=== PATIENT | female | born 1935 | race Caucasian/White ===

== ENCOUNTER 2023-06-26 21:51 | Inpatient (IN) | payer OTHER ==
[2023-06-26 22:30] LABS: Absolute Lymphocytes (CBC) 2.1 K/uL (0.7-4.9); Hematocrit 41.2 % (36.0-45.0); MCV 90.2 fL (80-100); MPV 9.1 fL (7.6-11.3); Platelets 269 thou/uL (152-406); RBC Red Blood Cell Count 4.57 M/uL (3.86-4.86)
[2023-06-26] MEDS ORDERED: NA CHLORIDE 0.9% 500 ML ONE (22:48)
[2023-06-26] MEDS ORDERED: cloNIDine HCL 0.1 MG TAB ONE (22:48)
[2023-06-26 22:56] LABS: Potassium 3.9 mEq/L (3.5-5.1)
[2023-06-26 23:11] LABS: Specific Gravity 1.022 (1.005-1.030); Urine Bacteria None Seen /HPF (<20); Urine Bilirubin NEGATIVE (Negative); Urine Blood Negative (Negative); Urine Clarity Clear (Clear); Urine Color Light-Yellow (Yellow); Urine Glucose NEGATIVE (Negative); Urine Mucus Slight /HPF (None Seen); Urine Protein NEGATIVE (Negative); Urine RBC <5 /HPF (None Seen); Urine Urobilinogen Normal (Normal); Urine pH 6.5 (5.0-7.0)
[2023-06-26 23:26] LABS: Troponin High Sensitivity 101.2 pg/mL (<58.9)
[2023-06-27] MEDS ORDERED: ASPIRIN 81 MG CHEWABLE TABLET ONE (01:07)
[2023-06-27] MEDS ORDERED: ENOXAPARIN 60 MG/0.6 ML SQ ONE (01:08)
--- NOTE | 2023-06-27 01:16 | ER ---
Nurse's Notes [facility] Name: Edita Brown Age: 87 yrs Sex: Female : 1935 Arrival Date: 06/26/2023 Time: 21:51 Bed 18 Private MD: Diagnosis: Hypertensive heart disease without heart failure Presentation: 06/26 22:09 Chief complaint: Patient states: been having vertigo for three days, with nausea, tm6 vomiting, and dizziness. Took BP at home today, SBP in the 200s. Took 0.25mg alprazolam prior to arrival. Coronavirus screen: Vaccine status: Patient reports receiving the 2nd dose of the covid vaccine. Ebola Screen: Patient negative for fever greater than or equal to 101.5 degrees Fahrenheit, and additional compatible Ebola Virus Disease symptoms Patient denies exposure to infectious person. Patient denies travel to an Ebola-affected area in the 21 days before illness onset. No symptoms or risks identified at this time. Initial Sepsis Screen: Does the patient meet any 2 criteria? No. Patient's initial sepsis screen is negative. Does the patient have a suspected source of infection? No. Patient's initial sepsis screen is negative. Risk Assessment: Do you want to hurt yourself or someone else? Patient reports no desire to harm self or others. Onset of symptoms was June 26, 2023. 22:09 Method Of Arrival: Ambulatory tm6 22:09 Acuity: ALICE 3 tm6 Triage Assessment: 22:14 General: Appears in no apparent distress. Behavior is calm, cooperative. Pain: Denies tm6 pain. EENT: No signs and/or symptoms were reported regarding the EENT system. Neuro: Level of Consciousness is awake, alert, obeys commands, Oriented to person, place, time, situation, Reports dizziness, since 06/24/23. Cardiovascular: Reports nausea, vomiting, high blood pressure since 06/24/23 Capillary refill < 3 seconds Patient's skin is warm and dry. Rhythm is sinus rhythm. Respiratory: Airway is patent Respiratory effort is even, unlabored, Respiratory pattern is regular, symmetrical. GI: Abdomen is flat, non-distended. : No signs and/or symptoms were reported regarding the genitourinary system. Derm: No signs and/or symptoms reported regarding the dermatologic system. Musculoskeletal: No signs and/or symptoms reported regarding the musculoskeletal system. Historical: - Allergies: 22:12 No Known Allergies; tm6 - Home Meds: 22:12 alprazolam 0.25 mg Oral tablet 1 tab [Active]; nebivolol 10 mg oral tablet 1 tab daily tm6 [Active]; losartan 50 mg oral tablet 1 tab daily [Active]; - PMHx: 22:14 Hypertensive disorder; Anxiety; tm6 - PSHx: 22:14 Appendectomy; tm6 - Immunization history:: Adult Immunizations up to date, Client reports receiving the 2nd dose of the Covid vaccine, Flu vaccine is up to date. - Social history:: Smoking status: Patient denies any tobacco usage or history of. Screenin:16 [facility] ED Fall Risk Assessment (Adult) History of falling in the last 3 months, tm6 including since admission No falls in past 3 months (0 pts) Confusion or Disorientation No (0 pts) Intoxicated or Sedated No (0 pts) Impaired Gait No (0 pts) Mobility Assist Device Used No (0 pt) Altered Elimination No (0 pt) Score/Fall Risk Level 0 - 2 = Low Risk. [facility] ED Fall Risk Assessment (Adult) Score/Fall Risk Level 0 - 2 = Low Risk Oriented to surroundings, Maintained a safe environment. Abuse screen: Denies threats or abuse. Denies injuries from another. Nutritional screening: No deficits noted. Tuberculosis screening: No symptoms or risk factors identified. Assessment: 22:16 Reassessment: see triage assessment. tm6 22:39 Reassessment: Patient appears in no apparent distress at this time. No changes from tm6 previously documented assessment. Patient and/or family updated on plan of care and expected duration. Pain level reassessed. Patient is alert, oriented x 3, equal unlabored respirations, skin warm/dry/pink. 06/27 00:51 Reassessment: No changes from previously documented assessment. Patient and/or family tm6 updated on plan of care and expected duration. Pain level reassessed. Patient is alert, oriented x 3, equal unlabored respirations, skin warm/dry/pink. 01:38 Reassessment: Patient appears in no apparent distress at this time. No changes from tm6 previously documented assessment. Patient and/or family updated on plan of care and expected duration. Pain level reassessed. Patient is alert, oriented x 3, equal unlabored respirations, skin warm/dry/pink. 02:30 Reassessment: Patient and/or family updated on plan of care and expected duration. Pain tm6 level reassessed. Patient is alert, oriented x 3, equal unlabored respirations, skin warm/dry/pink. Vital Signs: 06/26 22:09 BP 222 / 119; Pulse 84; Resp 12; Temp 98.7(TE); Pulse Ox 98% on R/A; Weight 59.87 kg; tm6 Height 5 ft. 1 in. ; Pain 0/10; 22:25 BP 223 / 109; Pulse 72; Resp 22; Pulse Ox 100% on R/A; Pain 0/10; tm6 22:39 BP 236 / 123; Pulse 81; Resp 15; Pulse Ox 100% on R/A; Pain 0/10; tm6 23:00 BP 203 / 101; Pulse 75; Resp 18; Pulse Ox 100% on R/A; mb9 23:30 BP 172 / 90; Pulse 69; Resp 16; Pulse Ox 100% on R/A; mb9 23:53 BP 161 / 81; Pulse 68; Resp 16; Pulse Ox 100% on R/A; Pain 0/10; tm6 06/27 00:20 BP 146 / 91; Pulse 66; Resp 16; Pulse Ox 97% on R/A; mb9 00:25 BP 124 / 76; Pulse 67; Pulse Ox 99% on R/A; tm6 00:51 BP 137 / 74; Pulse 67; Pulse Ox 95% on R/A; tm6 00:53 BP 109 / 84; Pulse 69; Pulse Ox 100% on R/A; tm6 01:38 BP 131 / 73; Pulse 66; Pulse Ox 98% on R/A; tm6 02:29 BP 100 / 70; Pulse 59; Resp 13; Pulse Ox 97% on R/A; Pain 0/10; tm6 06/26 22:09 Body Mass Index 24.94 (59.87 kg, 154.94 cm) tm6 06/26 22:09 Pain Scale: Adult tm6 22:25 Pain Scale: Adult tm6 22:39 Pain Scale: Adult tm6 23:53 Pain Scale: Adult tm6 02:29 Pain Scale: Adult tm6 ED Course: 06/26 21:55 Patient arrived in ED. ra3 21:55 Prakash Patel PA is PHCP. cp 21:55 Norris Gilliam MD is Attending Physician. cp 22:09 Quentin Carroll, ARABELLA is Primary Nurse. tm6 22:12 Triage completed. tm6 22:14 Arm band placed on right wrist. tm6 22:15 Inserted saline lock: 20 gauge in right antecubital area, using aseptic technique. mb9 Blood collected. 22:16 Patient has correct armband on for positive identification. Placed in gown. Bed in low tm6 position. Call light in reach. Side rails up X2. Provided Education on: plan of care. Client placed on continuous cardiac and pulse oximetry monitoring. NIBP monitoring applied. fourdrinier wire weaver on. Pulse ox on. NIBP on. Door closed. Noise minimized. Warm blanket given. 23:09 Urinalysis W/Microscopic Sent. tm6 23:[address] via wheelchair. mb9 23:26 Notified Nurse Practitioner and/or Physician Costume Specialist of a critical lab result(s), mb9 troponin 101.2. 23:30 CT Head Brain wo Cont In Process Unspecified. EDUT 06/27 01:15 Paul Stanley MD is Hospitalizing Provider. cp 03:38 No provider procedures requiring assistance completed. Patient admitted, IV remains in tm6 place. Administered Medications: 06/26 22:56 Drug: cloNIDine PO 0.2 mg PO once Route: PO; tm6 22:56 Drug: NS 0.9% IV 500 ml IV at 100 ml/hr continuous Route: IV; Rate: 100 ml/hr; Site: tm6 right antecubital; 06/27 01:12 Drug: Aspirin PO Chewable Tablet 324 mg PO once; 81 mg tablets x 4 Route: PO; tm6 01:12 Drug: Enoxaparin Sub-Q 1 mg/kg Sub-Q once Route: Sub-Q; Site: right lower abdomen; tm6 Medication: 06/26 22:16 VIS not applicable for this client. tm6 Outcome: 06/27 01:16 Decision to Hospitalize by Provider. cp 03:39 Admitted to Med/surg accompanied by nurse, room 401, with chart, Report called to [facility] [place] BELL 03:39 Condition: stable 03:39 Instructed on the need for admit, 03:39 Patient left the ED. tm6 Signatures: Dispatcher [employer] EDUT Prakash Patel PA PA cp Breneman, Cassy Venegas, RN RN mb9 Quentin Carroll RN RN 6 Patti Brice 3 Corrections: (The following items were deleted from the chart) 06/26 23:34 23:23 BP 191 / 95; Pulse 70bpm; Resp 16bpm; Pulse Ox 100% RA; mb9 mb9 23:38 23:30 BP 172 / 96; Pulse 69bpm; Resp 16bpm; Pulse Ox 100% RA; mb9 mb9
--- NOTE | 2023-06-27 01:16 | EDPHYS ---
Physician Documentation [facility] Name: Edita Brown Age: 87 yrs Sex: Female : 1935 Arrival Date: 06/26/2023 Time: 21:51 Bed 18 Private MD: ED Physician Norris Gilliam HPI: 06/26 22:20 This 87 yrs old Female presents to ER via Ambulatory with complaints of High Blood cp Pressure. 22:20 The patient has elevated blood pressure and discovered this at home, with a home cp device. Onset: The symptoms/episode began/occurred today. 22:20 Associated signs and symptoms: Pertinent positives: dizziness, Pertinent negatives: cp chest pain, visual changes, weakness, active vomiting. Severity of symptoms: in the emergency department the blood pressure is unchanged, despite home interventions. 22:20 Patient reports 3 days ago started having dizziness, nausea and vomiting that has been cp improved today. Check blood pressure and noticed it was elevated in the 200's. Historical: - Allergies: 22:12 No Known Allergies; tm6 - Home Meds: 22:12 alprazolam 0.25 mg Oral tablet 1 tab [Active]; nebivolol 10 mg oral tablet 1 tab daily tm6 [Active]; losartan 50 mg oral tablet 1 tab daily [Active]; - PMHx: 22:14 Hypertensive disorder; Anxiety; tm6 - PSHx: 22:14 Appendectomy; tm6 - Immunization history:: Adult Immunizations up to date, Client reports receiving the 2nd dose of the Covid vaccine, Flu vaccine is up to date. - Social history:: Smoking status: Patient denies any tobacco usage or history of. ROS: 22:25 Constitutional: Negative for body aches, chills, fever, poor PO intake, cp 22:25 Eyes: Negative for injury, pain, redness, and discharge, cp 22:25 Cardiovascular: Negative for chest pain, edema, palpitations, 22:25 Respiratory: Negative for cough, shortness of breath, wheezing, 22:25 Abdomen/GI: Negative for abdominal pain, diarrhea, constipation, active vomiting, 22:25 ENT: Negative for drainage from ear(s), ear pain, sore throat, difficulty swallowing, cp difficulty handling secretions, 22:25 Neck: Negative for pain with movement, pain at rest, stiffness, 22:25 Back: Negative for pain at rest, pain with movement, 22:25 Neuro: Positive for dizziness, Negative for altered mental status, headache, numbness, syncope, weakness, 22:25 All other systems are negative, Exam: 22: ECG was reviewed by the Attending Physician. cp 22:30 Constitutional: The patient appears in no acute distress, alert, awake, cp non-diaphoretic, non-toxic, well developed, well nourished, 22:30 Head/Face: Normocephalic, atraumatic. cp 22:30 Eyes: Periorbital structures: appear normal, Pupils: equal, round, and reactive to light and accomodation, Extraocular movements: intact throughout, Conjunctiva: normal, no exudate, no injection, Sclera: no appreciated abnormality, Lids and lashes: appear normal, bilaterally, 22:30 ENT: External ear(s): are unremarkable, Nose: is normal, Mouth: Lips: moist, Oral mucosa: pink and intact, moist, Posterior pharynx: is normal, airway is patent, no erythema, no exudate, 22:30 Neck: ROM/movement: is normal, is supple, without pain, no range of motions limitations, no nuchal rigidity, 22:30 Chest/axilla: Inspection: normal, Palpation: is normal, no crepitus, no tenderness, 22:30 Cardiovascular: Rate: normal, Rhythm: regular, Edema: is not appreciated, JVD: is not appreciated, 22:30 Respiratory: the patient does not display signs of respiratory distress, Respirations: normal, no use of accessory muscles, no retractions, labored breathing, is not present, Breath sounds: are clear throughout, no decreased breath sounds, no stridor, no wheezing, 22:30 Abdomen/GI: Inspection: abdomen appears normal, Bowel sounds: active, all quadrants, Palpation: abdomen is soft and non-tender, in all quadrants, 22:30 Back: pain, is absent, ROM is normal, 22:30 Skin: no rash present. 22:30 Neuro: Orientation: to person, place \T\ time. Mentation: is normal, Cerebellar function: is grossly normal, Motor: moves all fours, strength is normal, Sensation: is normal, Vital Signs: 22:09 BP 222 / 119; Pulse 84; Resp 12; Temp 98.7(TE); Pulse Ox 98% on R/A; Weight 59.87 kg; tm6 Height 5 ft. 1 in. ; Pain 0/10; 22:25 BP 223 / 109; Pulse 72; Resp 22; Pulse Ox 100% on R/A; Pain 0/10; tm6 22:39 BP 236 / 123; Pulse 81; Resp 15; Pulse Ox 100% on R/A; Pain 0/10; tm6 23:00 BP 203 / 101; Pulse 75; Resp 18; Pulse Ox 100% on R/A; mb9 23:30 BP 172 / 90; Pulse 69; Resp 16; Pulse Ox 100% on R/A; mb9 23:53 BP 161 / 81; Pulse 68; Resp 16; Pulse Ox 100% on R/A; Pain 0/10; tm6 06/27 00:20 BP 146 / 91; Pulse 66; Resp 16; Pulse Ox 97% on R/A; mb9 00:25 BP 124 / 76; Pulse 67; Pulse Ox 99% on R/A; tm6 00:51 BP 137 / 74; Pulse 67; Pulse Ox 95% on R/A; tm6 00:53 BP 109 / 84; Pulse 69; Pulse Ox 100% on R/A; tm6 01:38 BP 131 / 73; Pulse 66; Pulse Ox 98% on R/A; tm6 02:29 BP 100 / 70; Pulse 59; Resp 13; Pulse Ox 97% on R/A; Pain 0/10; tm6 06/26 22:09 Body Mass Index 24.94 (59.87 kg, 154.94 cm) 6 06/26 22:09 Pain Scale: Adult 6 22:25 Pain Scale: Adult tm6 22:39 Pain Scale: Adult tm6 23:53 Pain Scale: Adult tm6 02:29 Pain Scale: Adult tm6 MDM: 06/26 22:27 Patient medically screened. cp 06/27 01:15 Data reviewed: vital signs, nurses notes, lab test result(s), EKG, radiologic studies, cp CT scan, plain films. 01:15 Differential diagnosis: hypertensive crisis, Malignant HTN, CVA, intracerebral cp hemorrhage, acute DC. Consideration of Admission/Observation Patient was admitted/placed on observation. I considered the following discharge prescriptions or medication management in the emergency department Medications were administered in the Emergency Department. See MAR. Independent interpretation of the following test(s) in the Emergency Department EKG: See my EKG interpretation above. Counseling: I had a detailed discussion with the patient and/or guardian regarding the historical points, exam findings, and any diagnostic results supporting the discharge/admit diagnosis, lab results, radiology results, the need for further work-up and treatment in the hospital. 06/26 22:15 Order name: Basic Metabolic Panel; Complete Time: 23:26 mb9 06/26 23:34 Interpretation: Normal except: GLUC 129; BUN 22; CRE 1.27; GFR 41. cp 06/26 22:15 Order name: CBC with Diff; Complete Time: 23:26 mb9 06/26 22:15 Order name: Troponin HS; Complete Time: 23:26 mb9 06/26 23:34 Interpretation: Abnormal: Troponin HS 101.2. cp 06/26 22:46 Order name: Urinalysis W/Microscopic; Complete Time: 23:26 cp 06/26 23:35 Interpretation: Normal except: UESTR 25. cp 06/26 22:46 Order name: PT-INR; Complete Time: 23:26 cp 06/26 22:46 Order name: Ptt, Activated; Complete Time: 23:26 cp 06/27 02:34 Order name: Urinalysis w/ reflexes [facility] 06/27 02:34 Order name: CBC with Automated Diff [facility] 06/27 02:34 Order name: CBC with Automated Diff [facility] 06/27 02:34 Order name: Comprehensive Metabolic Panel [facility] 06/27 02:34 Order name: Comprehensive Metabolic Panel [facility] 06/27 02:34 Order name: Lipid Profile [facility] 06/27 02:34 Order name: Lipid Profile [facility] 06/27 02:35 Order name: Troponin High Sensitivity [facility] 06/27 02:35 Order name: Troponin High Sensitivity [facility] 06/27 02:35 Order name: Troponin High Sensitivity [facility] 06/26 22:46 Order name: CT Head Brain wo Cont cp 06/27 02:42 Order name: Echo with Doppler [facility] 06/26 22:15 Order name: EKG; Complete Time: 22:16 mb9 06/26 22:15 Order name: Cardiac monitoring; Complete Time: 22:15 mb9 06/26 22:15 Order name: EKG - Nurse/Tech; Complete Time: 22:25 mb9 06/26 22:15 Order name: IV Saline Lock; Complete Time: 22:15 mb9 06/26 22:15 Order name: Labs collected and sent; Complete Time: 22:15 mb9 06/26 22:15 Order name: O2 Per Protocol; Complete Time: 22:15 mb9 06/26 22:15 Order name: O2 Sat Monitoring; Complete Time: 22:15 mb9 EC/24 22:27 Rate is 76 beats/min. Rhythm is regular. NE interval is normal. QRS interval is normal. cp QT interval is normal. T waves are Inverted in lead aVR. Interpreted by me. Reviewed by me. Administered Medications: 22:56 Drug: cloNIDine PO 0.2 mg PO once Route: PO; tm6 22:56 Drug: NS 0.9% IV 500 ml IV at 100 ml/hr continuous Route: IV; Rate: 100 ml/hr; Site: tm6 right antecubital; 06/27 01:12 Drug: Aspirin PO Chewable Tablet 324 mg PO once; 81 mg tablets x 4 Route: PO; tm6 01:12 Drug: Enoxaparin Sub-Q 1 mg/kg Sub-Q once Route: Sub-Q; Site: right lower abdomen; tm6 Disposition: 04:03 Co-signature as Attending Physician, Norris Gilliam MD I reviewed the patient's care rt provided by the Advanced Practice Provider and agree with the diagnosis and treatment plan. Disposition Summary: 06/27/23 01:16 Hospitalization Ordered Notes: Hospitalization Status: Inpatient Admission cp Provider: Paul Stanley cp Location: Telemetry/MedSurg (Inpatient) cp Condition: Stable cp Problem: new cp Symptoms: have improved cp Bed/Room Type: Standard cp Room Assignment: 401(06/27/23 02:33) cg Diagnosis - Hypertensive heart disease without heart failure cp Forms: - Medication Reconciliation Form cp - SBAR form cp - Leadership Thank You Letter cp Signatures: Dispatcher [employer] EDMS Prakash Patel PA PA cp Tami Madden RN RN cg Cassy Manjarrez RN RN mb9 Norris iGlliam MD MD rt Quentin Carroll RN RN tm6 Corrections: (The following items were deleted from the chart) 02:33 01:16 cp cg 06/28 01:00 06/25 22:27 ECG was reviewed by the Attending Physician. cp cp 06/28 01:00 06/25 22:27 Rate is 76 beats/min. Rhythm is regular. NE interval is normal. QRS cp interval is normal. QT interval is normal. T waves are Inverted in lead aVR. Interpreted by me. Reviewed by me. cp
[2023-06-27] MEDS ORDERED: ACETAMINOPHEN 325 MG TABLET PO PRN (02:29)
[2023-06-27] MEDS ORDERED: ONDANSETRON 4 MG/2 ML VIAL IV PRN (02:29)
--- NOTE | 2023-06-27 02:36 | P.HP ---
Certification for Inpatient Patient admitted to: Inpatient With expected LOS: >2 Midnights Practitioner: I am a practitioner with admitting privileges, knowledge of patient current condition, hospital course, and medical plan of care. Services: Services provided to patient in accordance with Admission requirements found in Title 42 Section 412.3 of the Code of Federal Regulations Patient History Date of Service: 06/27/23 Reason for admission: Elevated BP , Dizziness History of Present Illness: 87 yo female with past medical history of hypertension was brought to ER with el evated blood pressure and dizziness which has been going on for the last 2 days. Patient complains of nausea and vomiting and dizziness 2 days ago. Denies any chest pain. No shortness of breath. No fever or chills. Patient is a poor historian hence most of the history is obtained from the family at the bedside and also talking to the ER physician. Patient was assessed in the ER and blood pressure was 222 / 112 and was admitted for further management. Patient also noted to have elevated troponin with no significant ST-T changes and without chest pain Allergies No Known Allergies Allergy (Unverified 06/27/23 01:59) Home medications list reviewed: Yes Home Medications: ALPRAZolam [Xanax*] 1 tab PO PRN 06/27/23 Losartan Potassium 1 tab PO DAILY 06/27/23 Nebivolol HCl 1 tab PO DAILY 06/27/23 - Past Medical/Surgical History Past Medical History: Reviewed- Non-Contributory -: Hypertension -: Anxiety Past Surgical History: Reviewed- Non-Contributory - Family History Family History: Reviewed- Non-Contributory - Social History Smoking Status: Never smoker Review of Systems 10-point ROS is otherwise unremarkable Physical Examination - Vital Signs Temperature: 98.2 F Blood Pressure: 102/68 Pulse: 74 Respirations: 18 Pulse Ox (%): 98 - Physical Exam General: Alert, In no apparent distress HEENT: Atraumatic, Normocephalic Neck: Supple, No Thyromegaly, No LAD Respiratory: Clear to auscultation bilaterally, Normal air movement Cardiovascular: Normal pulses, Regular rate/rhythm, Normal S1 S2 Capillary refill: <2 Seconds Gastrointestinal: Soft and benign, W/out hepatosplenomegaly, No tenderness Musculoskeletal: No clubbing, No swelling Integumentary: No rashes, No breakdown Neurological: Normal speech, Normal strength at 5/5 x4 extr, Cranial nerves 3-12 intact Lymphatics: No axilla or inguinal lymphadenopathy - Studies Laboratory Data (last 24 hrs) 06/26/23 06/26/23 06/26/23 22:54 22:17 22:17 WBC 7.30 Hgb 14.0 Hct 41.2 Plt Count 269 PT 11.0 INR 1.00 APTT 30.5 Sodium 139 Potassium 3.9 BUN 22 H Creatinine 1.27 H Glucose 129 H Assessment and Plan - Problems (Diagnosis) (1) NSTEMI (non-ST elevated myocardial infarction) Current Visit: Yes Status: Acute Plan: NSTEMI possibly type II due to hypertensive urgency Will trend cardiac enzymes Will monitor telemetry Started on aspirin and statin EKG did not show any acute changes sinus ST-T suggestive of ischemia Patient denies any chest pain Will get an echocardiogram Cardiology consult (2) Hypertensive urgency Current Visit: Yes Status: Acute Plan: Monitor closely on telemetry Hydralazine as needed Started on amlodipine and Coreg Titrate as needed (3) PATRICIA (acute kidney injury) Current Visit: Yes Status: Acute Plan: Monitor renal parameters IV hydration moderation Electrolytes monitored and replace accordingly Possibly prerenal (4) Dizziness Current Visit: Yes Status: Acute Plan: CT head negative for any acute changes Possibly due to hypertensive emergency Will get an MRI of the brain if not better Discharge Plan: Home Plan to discharge in: 48 Hours - Advance Directives Does patient have a Living Will: No Does patient have a Durable POA for Healthcare: No Time Spent Managing Pts Care (In Minutes): 48
[2023-06-27] MEDS ORDERED: HYDRALAZINE HCL 20 MG/ML VIAL IV PRN (02:37)
[2023-06-27 03:43] VITALS: BMI 24.7
[2023-06-27] MEDS: NA CHLORIDE 0.9% 1,000 ML IV SCH (04:05)
[2023-06-27 04:08] VITALS: O2SAT 97
[2023-06-27] MEDS: carvediloL 6.25 MG TAB PO SCH (04:08)
[2023-06-27] MEDS: AMLODIPINE 5 MG TAB PO SCH (04:08)
[2023-06-27 06:33] VITALS: TEMP 97
--- NOTE | 2023-06-27 08:08 | P.PN ---
Subjective Date of Service: 06/27/23 Chief Complaint: Elevated BP , Dizziness Physical Examination - Vital Signs Temperature: 97.0 F Blood Pressure: 152/88 Pulse: 68 Respirations: 13 Pulse Ox (%): 96 - Studies Laboratory Data (last 24 hrs) 06/26/23 06/26/23 06/26/23 22:54 22:17 22:17 WBC 7.30 Hgb 14.0 Hct 41.2 Plt Count 269 PT 11.0 INR 1.00 APTT 30.5 Sodium 139 Potassium 3.9 BUN 22 H Creatinine 1.27 H Glucose 129 H
[2023-06-27] MEDS: ASPIRIN EC 81 MG TAB PO SCH (08:44)
[2023-06-27] MEDS: ENOXAPARIN 30 MG/0.3 ML SQ SCH (08:44)
[2023-06-27 08:51] VITALS: BP 149/78
--- NOTE | 2023-06-27 09:18 | P.CNS ---
Date of Consult: 06/27/23 Chief Complaint: Elevated BP , Dizziness History of Present Illness: Patient with PMH og HTN, presented to ER with dizziness and high BP. patient denies any chest pain, no SOB, no palpitations, no syncope. report recent long travel which was stressful. Allergies No Known Allergies Allergy (Unverified 06/27/23 01:59) Home Medications: ALPRAZolam [Xanax*] 1 tab PO PRN 06/27/23 Losartan Potassium 1 tab PO DAILY 06/27/23 Nebivolol HCl 1 tab PO DAILY 06/27/23 - Past Medical/Surgical History Diabetic: No -: Hypertension -: Anxiety -: Appendectomy - Social History Alcohol use: No CD- Drugs: No Caffeine use: Yes Place of Residence: Home Review of Systems 10-point ROS is otherwise unremarkable Physical Examination Temp Pulse Resp BP Pulse Ox 97.0 F 73 13 149/78 H 96 06/27/23 08:07 06/27/23 08:44 06/27/23 08:07 06/27/23 08:44 06/27/23 08:07 General: Alert, Oriented x3 HEENT: Atraumatic Neck: Supple Respiratory: Clear to auscultation bilaterally Cardiovascular: No edema, Normal S1 S2 Gastrointestinal: Normal bowel sounds Laboratory Data (last 24 hrs) 06/26/23 06/26/23 06/26/23 22:54 22:17 22:17 WBC 7.30 Hgb 14.0 Hct 41.2 Plt Count 269 PT 11.0 INR 1.00 APTT 30.5 Sodium 139 Potassium 3.9 BUN 22 H Creatinine 1.27 H Glucose 129 H - Problems (1) Hypertensive urgency Current Visit: Yes Status: Acute Plan: Continue Coreg 6.25 mg po BID Continue patient home dose Losartan she can stop her home bystolic. if repeated PM BP is normal then patient can go home. (2) NSTEMI (non-ST elevated myocardial infarction) Current Visit: Yes Status: Acute Plan: troponin mildly elevated with no significant delta, most likely type 2 MT from hypertensive emergency. patient had a recent echo and stress test done through her primary play back operator and was told all normal. No need for further cardiac work up ok to continue ASA 81 mg daily.
--- NOTE | 2023-06-27 10:05 | P.DS ---
Admission Date: 06/27/23 Discharge Date: 06/27/23 Disposition: ROUTINE DISCHARGE Discharge Condition: GOOD Reason for Admission: Elevated BP , Dizziness Vital Signs/Physical Exam: Temp Pulse Resp BP Pulse Ox 97.0 F 73 13 149/78 H 96 06/27/23 08:07 06/27/23 08:44 06/27/23 08:07 06/27/23 08:44 06/27/23 08:07 Laboratory Data at Discharge: WBC 7.30 thou/uL (4.3-10.9) 06/26/23 22:17 Hgb 14.0 g/dL (12.0-15.0) 06/26/23 22:17 Hct 41.2 % (36.0-45.0) 06/26/23 22:17 Plt Count 269 thou/uL (152-406) 06/26/23 22:17 PT 11.0 SECONDS (9.5-12.5) 06/26/23 22:54 INR 1.00 06/26/23 22:54 APTT 30.5 SECONDS (24.3-36.9) 06/26/23 22:54 Sodium 139 mEq/L (136-145) 06/26/23 22:17 Potassium 3.9 mEq/L (3.5-5.1) 06/26/23 22:17 BUN 22 mg/dL (7-18) H 06/26/23 22:17 Creatinine 1.27 mg/dL (0.55-1.02) H 06/26/23 22:17 Glucose 129 mg/dL (74-106) H 06/26/23 22:17 Home Medications: ALPRAZolam [Xanax*] 1 tab PO PRN 06/27/23 Amlodipine [Norvasc*] 5 mg PO DAILY tab 06/27/23 Atorvastatin Calcium [Lipitor] 40 mg PO BEDTIME tab 06/27/23 Losartan Potassium 1 tab PO DAILY 06/27/23 Pharmacy Consult 1 ea XX DAILYPRN PRN ea 06/27/23 carvediloL [Coreg*] 6.25 mg PO BID 30 Days #60 tab 06/27/23 New Medications: carvediloL [Coreg*] 6.25 mg PO BID 30 Days #60 tab Physician Discharge Instructions: 87 year-old female patient presented with hypertension urgency. Was noted to have elevated blood pressure, elevated troponin. Condition improved with additional blood pressure medications, cardiology evaluation. Patient tolerating diet, stable for discharge to home with follow-up appointment with primary care physician, cardilogy. PROBLEM: hypertensive urgency elevated blood pressure elevated troponin. Continue home medicines as previously prescribed follow up with cardiolgy in 1-2 weeks. GOAL: Clear understanding of disease process INSTRUCTIONS: Physician Discharge Instructions: -Follow-up with PCP in 1 to 2 weeks -Please call Dr. Ricardo at [phone] if any questions regarding hospital stay -Please call nursing station at [phone] if any nursing or medication questions -Return to the emergency room if symptoms worsen Diet: ADA, low sodium Activity: Fall precautions Diet: AHA Activity: Fall precautions Followup: Norris Munguia MD [Primary Care Provider] -
--- NOTE | 2023-06-27 20:04 | RAD REPORT ---
EXAM DESCRIPTION: CT - Head Brain Wo Cont - 06/27/2023 6:21 am CLINICAL HISTORY: The patient is 87 years old and is Female; htn;Dizziness TECHNIQUE: Axial computed tomography images of the head/brain without intravenous contrast. Sagitt al and coronal reformatted images were created and reviewed. This CT exam was performed using one o r more of the following dose reduction techniques: automated exposure control, adjustment of the mA and/or kV according to patient size, and/or use of iterative reconstruction technique. COMPARISON: No relevant prior studies available. FINDINGS: BRAIN: There is diffuse cerebral atrophy present, consistent with this patient's age. There is patchy hypoattenuation of the deep white matter which is non-specific, but most likely owing to chronic small vessel ischemic change in a patient of this age group. No intracranial hemorrhage , mass effect or midline shift is seen. There are no extra-axial fluid collections. VENTRICLES: Unremarkable. No ventriculomegaly. BONES/JOINTS: No acute fracture. SOFT TISSUES: Unremarkable. SINUSES: Unremarkable as visualized. No acute sinusitis. MASTOID AIR CELLS: Unremarkable as visualized. No mastoid effusion. ORBITS: Unremarkable as visualized. IMPRESSION: No acute intracranial findings. Electronically signed by: Nessa Giraldo MD 06/27/2023 12:17 AM DRY PAN CHARGER Due to temporary technical issues with the PACS/Fluency reporting system, reports are being signed by the in house radiologists without review as a courtesy to insure prompt reporting. The interpreting radiologist is fully responsible for the content of the report.
[2023-06-27] MEDS ORDERED: ATORVASTATIN 40 MG TAB PO SCH (21:00)
--- NOTE | 2023-06-28 14:32 | EKG ---
Test Date: 2023-06-26 Test Time: 22:22:09 Principal Technologist: AGNES MEASUREMENT RESULTS: Intervals: Rate: 76 HI: 124 QRSD: 64 QT: 400 QTc: 450 [place]: P: 32 HI: 124 QRS: 18 T: 36 INTERPRETIVE STATEMENTS: Normal sinus rhythm Nonspecific ST abnormality Abnormal ECG No previous ECG available for comparison Electronically Signed On 06-28-23 14:27:43 BUILDING MAINTENANCE REPAIRER by Bassem Weathers
== END 2023-06-27 11:53 | disposition home or self-care (01) | DRG 281 ==
LOC: ER 21:51 → 4TH 06-27 02:29
PROVIDERS: ADMIT Family Medicine; ATTEND Hospitalist
DX: I16.0 Hypertensive urgency (principal); I21.A1 Myocardial infarction type 2; N17.9 Acute kidney failure, unspecified; I11.9 Hypertensive heart disease without heart failure; R42 Dizziness and giddiness; R11.2 Nausea with vomiting, unspecified; F41.9 Anxiety disorder, unspecified; Z79.899 Other long term (current) drug therapy
CPT/HCPCS: 36415; 70450; 80048; 81001; 84484; 85025; 85610; 85730; 93005; 96372; 99285; J1650; J7030; J7040